=== PATIENT | male | born 1980 | race Caucasian/White ===

== ENCOUNTER 2025-09-17 17:01 | Emergency (ER) | payer OTHER, SELFPAY ==
--- NOTE | ~2025-09-17 | XR_ITS ---
XR hand RT min 3V 09/17/2025 21:20 Indication: Concern for right hand gas-forming organism Procedure: 5 views right hand Comparison: No prior studies for comparison. Findings: Moderate diffuse soft tissue swelling. There is possible subcutaneous gas. No evidence for osteomyelitis. Impression: 1: Possible subcutaneous gas with diffuse soft tissue swelling, suspicious for cellulitis. No evidence for osteomyelitis. Reviewed, dictated and finalized at location O. [employer] ENGINEER Impression: 1: Possible subcutaneous gas with diffuse soft tissue swelling, suspicious for cellulitis. No evidence for osteomyelitis.
--- NOTE | ~2025-09-17 | XR_ITS ---
EXAMINATION: XR chest 2V DATE: 09/17/2025 19:23 INDICATION: Crackles at lung bases. TECHNIQUE: Frontal and lateral views of the chest were obtained. COMPARISON: None. FINDINGS: Heart size is normal. Lungs are clear on both sides. Limited lateral view due to patient condition. IMPRESSION: 1. No acute cardiopulmonary findings Reviewed, dictated and finalized at location T. [employer]
--- NOTE | ~2025-09-17 | CT_ITS ---
EXAMINATION: CT hand RT wo con DATE: 09/18/2025 00:40 INDICATION: Right hand swelling with concern for gas forming organism TECHNIQUE: High resolution computed tomography (CT) of the right hand and wrist was performed without intravenous contrast. Additional sagittal and coronal reconstructions were performed. Automated exposure control and iterative reconstruction technique were employed. The dose-length product was 615.16 mGy-cm. COMPARISON: Right hand radiographs dated 09/17/2025 FINDINGS: Bone alignment is normal. No fracture. Joint spaces appear relatively preserved throughout. No cortical erosions or periosteal reaction to suggest osteomyelitis. There is diffuse soft tissue swelling with subcutaneous edema about the forearm and extending over the dorsum of the hand and wrist. No soft tissue gas. The lucencies of concern on the prior radiograph corresponds to the small lobules of subcutaneous fat surrounded by the more dense subcutaneous edema. No evident abscess or radiopaque foreign bodies. IMPRESSION: 1. Nonspecific soft tissue swelling and prominent subcutaneous edema about the distal forearm and extending over the dorsum of the hand and wrist. No abscess, soft tissue gas or osseous abnormality. Reviewed, dictated and finalized at location A. OPERATOR
[2025-09-17 17:06] VITALS: BP 153/95; PULSE 113; RESP 16; TEMP 37; O2SAT 97
[2025-09-17 18:24] VITALS: BP 145/100; PULSE 92; RESP 15; TEMP 36.7; O2SAT 98
[2025-09-17 18:49] VITALS: BP 147/90; PULSE 107; RESP 18; O2SAT 98
--- OUTSIDE RECORDS SUMMARY | 2025-09-17 18:49 | XMS_ITS | Clinical Summary ---
Author Organization [facility] Address [address] [place] [address] Care Team Providers Care Vascular Technician Name Role Phone Siomara Gordillo MD Primary Care Prov ider Allergies Active Allergy Reactions Criticality Noted Date Comments Vancomycin Rash Medium 03/10/2018 Hx red man syndrome Medications silver sulfadiazine (SILVADENE, SSD) 1 % cream Apply topically daily 50 g 1 1 Active acetaminophen (TYLENOL) 500 mg tablet Take 500 mg by mouth every 4 (four) hours as needed 0 Active famotidine (PEPCID) 20 mg tablet Take 20 mg by mouth nightly as needed 8 Active gabapentin (NEURONTIN) 300 mg capsule Take 600 mg by mouth nightly Active amoxicillin-clavu lanate (AUGMENTIN) 875-125 mg per tablet Take 1 tablet by mouth 2 (two) times a day Active furosemide (LASIX) 20 mg tabletIndications :Edema Take 30 mg by mouth as needed Active Active Problems Problem Noted Date Diagnosed Date Other biomechanical lesions of upper extremity 1 09/24/2020 Overview (07/25/2021): Added automatically from request for surgery [id number] Wound of left upper extremity 07/25/2021 Overview (07/25/2021): Added automatically from request for surgery [id number] Surgical History Surgery Date Site/Laterality Comments HAMSTRING RELEASE 09/21/1985 - 09/20/1986 Right r/t cerebral palsy Medical History Medical History Date Comments Bipolar disorder Hypertension h/o htn currentl y not on meds GERD (gastroesophageal reflux disease) takes pepcid prn Cerebral palsy rt side affected Sleep disorder can go 4-5 days w/o sleeping, possible RLS Social History Tobacco Use Types Packs/Day Years Used Date Smoking Tobacco: Every Day Cigarettes 0.3 30 AUDIT-C Answer Date Recorded Q1: How often do you have a drink containing alc ohol? Never 08/16/2021 Average Number of Drinks Not on file 021 Frequency of Binge Drinking Not on file 07/23 Personal Safety Answer Date Recorded Getting School Help Needed Not on file 11/16 Sex and Gender Information Value Date Recorded Sex Assigned at Not on file Legal Sex Male 6:50 AM APPLICATION SUPPORT Gender Identity Not on file Sexual Orientation Not on file Last Filed Vital Signs Vital Sign Reading Time Taken Comments Blood Pressure - - Pulse - - Temperature 36.6 C (97.8 F) 07/22/2021 10:22 AM CDT Respiratory Rate - - Oxygen Saturation - - Inhaled Oxygen Concentration - - Weight 84.4 kg (186 lb) 08/16/2021 11:55 AM APPLICATION SUPPORT Height 180.3 cm (5' 11) 08/16/2021 11:55 AM APPLICATION SUPPORT Body Mass Index 25.94 08/16/2021 11:55 AM APPLICATION SUPPORT Plan of Treatment Not on file Insurance [facility] Care Teams Vascular Technician Relationship Specialty Start Date End Date Siomara Gordillo MD PCP - General Family Medicine 06/21/21
--- OUTSIDE RECORDS SUMMARY | 2025-09-17 18:49 | XMS_ITS | Clinical Summary ---
Author Organization [facility] Address [address] [place] [address] Care Team Providers Care Metrology Engineer Name Role Phone Isaiah Moreland MD Primary Care Provider [phone] Source Comments [facility],non-owned Affiliates and Associated Physician Practices is amultiple site organization consisting of ambulatory clinics and hospital sitesin [place], [place], [place] and [place]. This disclosure is being madepursuant to the Care Everywhere program and may not contain all information available regarding this patient. Last updated 18.[facility] Allergies Active Allergy Reactions Criticality Noted Date Comments Vancomycin Rash Medium 03/10/2018 Hx red man syndrome Medications * Be aware that medications may not be up to date on this document. Alwaysverify current medications with the patient. sulfamethoxazole- trimethoprim (Bactrim DS; Septra DS) 800-160 MG tablet Take 2 (two) tablets by mouth 2 times daily for 5 days 20 tablet 2 Active sodium hypochlorite 0.125% (Dakins) 0.125 % SOLN 1/4 strength solution Apply to affected area every 8 hours 473 mL 3 Active buPROPion SR 12hr (Wellbutrin-SR) 150 MG tabletIndications :Nicotine Dependence Take 1 (one) tablet by mouth once daily for 30 days Reasons: Nicotine Addiction 30 tablet 4 Active traZODone (Desyrel) 50 MG tablet Take 1 (one) tablet by mouth at bedtime for 30 days 30 tablet 4 Active wound gel (Medihoney;Hydrog el) GEL Apply to affected area as needed 250 mL 4 Active sulfamethoxazole- trimethoprim (Bactrim DS; Septra DS) 800-160 MG tablet TAKE ONE TABLET BY MOUTH 2 TIMES A DAY 28 tablet 4 Active Active Problems Problem Noted Date Diagnosed Date Other acute osteomyelitis of left hand 3 Opiate use 09/11/2023 Microcytic anemia 09/11/2023 Elevated C-reactive protein (CRP) 09/11/2023 Elevated erythrocyte sedimentation rate 09/11/20 IVDU (intravenous drug user) 08/30/2022 Tobacco use 08/30/2022 Granulation tissue 08/30/2022 Swelling of left hand 08/30/2022 IV drug abuse 03/12/2018 Cerebral palsy 03/12/2018 Swelling of right hand 03/10/2018 Abscess of right hand Abscess of right thumb Resolved Problems Problem Noted Date Diagnosed Date Resolved Date Sepsis 09/11/2023 09/30/2023 Open wound of left hand with out foreign body, unspecified wound type, subsequent encounter 09/10/2023 09/30/2023 Cellulitis of hand 03/10/2018 4 Immunizations Immunization Administration Dates Next Due [employer] PTY primary monoval ent 12+ yr 0.3mL Purple cap 04/10/2021,03/13/2021 INFLUENZA VACCINE, QUADR. (A FLURIA, FLUZONE QUADRIVALENT; 6MO+) (IIV4) 06/20/2021 TDAP (7yrs+) 08/30/2022 Family History Medical History Relation Name Comments Diabetes - Type 2 Maternal Grandfather Hypertension Mother Diabetes - Type 2 Sister Hypertension Sister Relation Name Status Comments Maternal Grandfather Mother Sister Social History Tobacco Use Types Packs/Day Years Used Date Smoking Tobacco: Every Day Cigarettes 1 32 Smokeless Tobacco: Never Tobacco Cessation:Ready to Q uit: Not Asked; Counseling Given: Not Answered Alcohol Use Standard Drinks/Week Comments No 0 (1 standard drink = 0.6 oz pur e alcohol) AUDIT-C Answer Date Recorded Q1: How often do you have a drink containing alcohol? Never 09/17/2023 Q2: How many drinks containi ng alcohol do you have on a typical day when you are drinking? Patient does not drink Q3: How often do you have si x or more drinks on one occasion? Never 09/17/2023 Overall Financial Resource Strain (CARDIA) Answe r Date Recorded How hard is it for you to pa y for the very basics like food, housing, medical care, and heating? Patient declined 09/17/2023 PHQ-2 Answer Date Recorded Patient Health Questionnaire-2 Score 3 01/22/2024 [facility] - Occupational Stress Questionnaire Answer Date Recorded Do you feel stress - tense, restless, nervous, or anxious, or unable to sleep at night because your mind is troubled all the time - these days? Not at all 09/17/2023 Hunger Vital Sign Answer Date Recorded Within the past 12 months, y ou worried that your food would run out before you got the money to buy more. Never true 09/17/20 23 Within the past 12 months, t he food you bought just didn't last and you didn't have money to get more. Never true 09/17/2023 PRAPARE - Transportation Answer Date Re corded In the past 12 months, has l ack of transportation kept you from medical appointments or from getting medications? No 08/22 In the past 12 months, has l ack of transportation kept you from meetings, work, or from getting things needed for daily living? No 09/17/2023 Housing Stability Vital Sign Answer Lamberto e Recorded In the last 12 months, was t here a time when you were not able to pay the mortgage or rent on time? Yes 09/17/2023 In the last 12 months, how many places have you lived? 1 09/17/2023 In the last 12 months, was t here a time when you did not have a steady place to sleep or slept in a jail (including now)? No 09/17/2023 Sex and Gender Information Value Date Recorded Sex Assigned at Not on file Legal Sex Male 5:33 AM GUARD DRIVER Gender Identity Not on file Sexual Orientation Not on file Last Filed Vital Signs Vital Sign Reading Time Taken Comments Blood Pressure 131/68 09/30/2023 3:30 PM GUARD DRIVER Pulse 81 09/30/2023 3:30 PM GUARD DRIVER Temperature 36.7 C (98.1 F) 09/30/2023 3:30 PM GUARD DRIVER Respiratory Rate 18 09/30/2023 4:30 AM GUARD DRIVER Oxygen Saturation 96% 09/30/2023 3:30 PM GUARD DRIVER Inhaled Oxygen Concentration 21% 09/21/2023 4 :35 AM GUARD DRIVER Weight 81.6 kg (180 lb) 09/18/2023 1:29 PM GUARD DRIVER Height 180.3 cm (5' 11) 09/18/2023 1:29 PM GUARD DRIVER Body Mass Index 25.1 09/18/2023 1:29 PM GUARD DRIVER Plan of Treatment Health Maintenance Due Date Last Done Comments LIPID TESTING 1981 HEPATITIS B VACCINE (1 of 3 - 19+ 3-dose series) 02/11/2000 PNEUMOCOCCAL VACCINE (1 of 2 - PCV) 02/11/2000 HPV VACCINE (1 - 3-dose SCDM series) 02/11/2008 DEPRESSION SCREENING 09/21/2024 COVID-19 VACCINE ( - season) 2025 04/10/2021, 03/13/2021 INFLUENZA VACCINE (#1) 2025 06/20/2021 SCREENING FOR DIABETES 09/30/2026 , 09/28/2023, 09/26/2023, Additional history exists ZOSTER VACCINE (1 of 2) 2031 DTAP/TDAP/TD VACCINES (2 - Td or Tdap) 08/30/2032 08/30/2022 HEPATITIS C SCREENING Completed 09/01/2022 HIV SCREENING Completed 09/01/2022, 02/20, 03/16/2018, Additional history exists HIB VACCINE Aged Out No longer eligi ble based on patient's age to complete this topic MENINGOCOCCAL (Group B) VACCINE SHARED DECISION-MAKING Aged Out No longer eligible based on patient's age to complete this topic MENINGOCOCCAL GROUPS A/C/Y/W VACCINE Aged Out No longer eligible based on patient's age to complete this topic Procedures Procedure Name Priority Date/Time Associated Diagnosis Comments BASIC METABOLIC PANEL (CALCIUM TOTAL) Routine 09/30/2023 3:17 AM GUARD DRIVER HEPATITIS C AB SCREEN RFLX NAAT QUANT Routine 09/01/2022 3:17 AM GUARD DRIVER HIV-1 HIV-2 ANTIBODY + HIV P24 AG PANEL Routine 09/01/2022 3:17 AM GUARD DRIVER from Last 3 Months or Most Recently Relevant to Health Maintenance Results * (ABNORMAL) BASIC METABOLIC PANEL (CALCIUM TOTAL) (09/30/2023 3:17 AM GUARD DRIVER) BUN 12 7 - 26 mg/dL 09/30/2023 4:04 AM [facility] Creatinine 0.70(L) 0.71 - 1.16 mg/dL 09/30/2023 4:04 AM [facility] Sodium 138 136 - 145 mmol/L 09/30/2023 4:04 AM [facility] Potassium 4.0 3.5 - 4.5 mmol/L 09/30/2023 4:04 AM [facility] Chloride 106 98 - 107 mmol/L 09/30/2023 4:04 AM [facility] CO2 23 22 - 29 mmol/L 09/30/2023 4:04 AM [facility] Glucose 119(H) 70 - 115 mg/dL 09/30/2023 4:04 AM [facility] Calcium 9.2 8.4 - 10.2 mg/dL 09/30/2023 4:04 AM [facility] Anion Gap 9 6 - 16 09/30/2023 4:04 AM [facility] BUN/Creatinine Ratio 17 7 - 23 09/30/2023 4:04 AM [facility] Osmolality Calculated 287 275 - 295 mOsm/kg 09/30/2023 4:04 AM [facility] eGFR by CKD-EPI >90 >=90 mL/min/1.7 3 m2 09/30/2023 4:04 AM [facility] Blood BLOOD SPECIMEN / Unknown Lab Venipuncture / Unknown 09/30/2023 3:17 AM GUARD DRIVER 09/30/2023 3:33 AM [facility] us Estela Dacosta DO LAB - CHEMISTRY ORDERABLES Fin al Result [facility] [address] [place] [address], [facility] [phone] * HEPATITIS C AB SCREEN RFLX NAAT QUANT (09/01/2022 3:17 AM GUARD DRIVER) Hepatitis C Antibody Non-react osman Non-reac tive 09/01/2022 4:34 AM GUARD DRIVER [facility] Comment:Hepatitis C Antibody screen indicates no serologic evidence of past or current infection with Hepatitis C Virus. Patients with unexplained liver disease who are immunocompromised or suspected of having acute Hepatitis C infection may benefit from Nucleic Acid Test (DEANNE) for Hepatitis C Viral RNA to confirm Hepatitis C status. Blood BLOOD SPECIMEN / Unknown Line Draw / Unknown 09/01/2022 3:17 AM GUARD DRIVER 09/01/2022 4:00 AM GUARD DRIVER Surinder Elam MD LAB - CHEMISTRY ORDERABLES Fin al Result Performing Organization Address [facility]/ZIP Co de Phone Number [address] [address], [facility] [phone] * HIV-1 HIV-2 ANTIBODY + HIV P24 AG PANEL (09/01/2022 3:17 AM GUARD DRIVER) HIV Antigen/Antibod y 1 & 2 Non-reacti ve Non-react osman 09/01/2022 4:34 AM GUARD DRIVER [facility] Comment:No Laboratory eviden ce of HIV infection. Blood BLOOD SPECIMEN / Unknown Line Draw / Unknown 09/01/2022 3:17 AM GUARD DRIVER 09/01/2022 4:00 AM GUARD DRIVER Surinder Elam MD LAB - CHEMISTRY ORDERABLES Fin al Result Performing Organization Address [facility]/ZIP Co de Phone Number [facility] [address] [place] [phone], [place] [phone] from Last 3 Months or Most Recently Relevant to Health Maintenance Insurance [facility] Advance Directives * Full Code (Latest Code Status on File) Date Activated Date Inactivated Comments 09/15/2023 9:51 PM 09/30/2023 7:39 PM * Full Code Date Activated Date Inactivated Comments 09/10/2023 8:32 PM 09/13/2023 12:44 PM * Full Code Date Activated Date Inactivated Comments 08/30/2022 2:07 AM 09/01/2022 2:42 PM * Full Code Date Activated Date Inactivated Comments 03/10/2018 10:40 PM 03/20/2018 11:48 AM Care Teams Metrology Engineer Relationship Specialty Start Date End Date Isaiah Moreland MD [address] [place] [address] PCP - General 03/26/18
--- OUTSIDE RECORDS SUMMARY | 2025-09-17 18:49 | XMS_ITS | Data Portability ---
Author Organization [facility] Address [address] [place] [address] Assessment No assessment recorded. Plan of Treatment Reminders Order Date Submit Date Provider Last Modified By Organization Details Last Modified Time Details Appointments ANY 15 2025 10:15A M Siomara marti MD Not available Not available Not available Lab cultur e, wound 2020 022 [email or web address], [address] [place] [address], [facility] [address], [place], [address], 10/09/2021 17:26:49 CBC w/ auto diff 2020 021 ovinsmt [facility], [address] [place] [address], [facility] [address], [place], [address], 10/09/2021 17:26:49 CMP, serum or plasma [facility], [address] [place] [address], [facility] [address], [place], [address], 10/09/2021 17:26:49 Referral wound care referr al - 10 month hx ulcera tion L forear m 2020 021 [facility], [address] [place] [address] [place], [address], 07/25/2021 12:09:11 Procedures None record ed. Surgeries None record ed. Imaging XR, should er, 2 or more view 2023 024 [email or web address] Not available 02/28/2025 13:53:58 MRI, forear m, w/wo contra st - large ulcer L forear m x 10 months 12 x 8 centim eters -neopl asm? osteo? other? 2020 022 noa [facility] Patient Access Centralized Scheduling, Centralized Scheduling, [address] [facility] , [place], [address], 01/29/2022 17:38:13 Medication Orders gabape ntin 300 mg capsul e 2023 024 [facility] [id number] [facility], [address] [place] [address], [address], 11/19/2023 10:40:30 doxycy prado hyclat e 100 mg capsul e 2020 021 [email or web address] [id number], [address], 11/19/2023 12:16:37 Neuron tin 300 mg capsul e 2020 021 [facility] [address] In [facility], [address] [place] [address], [address], 06/20/2021 17:20:12 Robaxi n-750 750 mg tablet 2017 018 [email or web address] [address], [address], 11/19/2023 12:16:43 raniti dine 150 mg tablet 2017 018 [email or web address] [id number], [address], 11/19/2023 12:16:54 Patient TargetsNo targets recorded. Patient Instructions Encounter Date Encounter Id Patient Instructions Last Modified By Organization Details Last Modified Time 02/14/2021 [id number] Keep scheduled fu [email or web address] Not available 02/14/2021 17:29:31 05/02/2021 [id number] In person eval being scheduled [email or web address] Not available 05/02/2021 17:47:14 06/20/2021 [id number] Plan address other health care issues at fu appt. [email or web address] Not available 06/21/2021 11:00:29 11/19/2023 [id number] Quitting Tobacco: Care Instructions [email or web address] Not available 11/19/2023 10:40:27 Quitting Tobacco: Care Instructions [email or web address] Not available 11/19/2023 12:19:04 FU 6 weeks. Keep ortho appts. [email or web address] Not available 11/19/2023 12:19:03 Reason for Referral 10 month hx ulceration L for earm Referring Physician: Siomara Gordillo, Family Medicine, Encounter Date: 06/20/2021 Results Created Date Observation Date Name Description Value Unit Range Abnormal Flag Note LastModifiedBy Organization Detail LastModifiedTime 03/10/20 18 03/10/2018 XR, hand No observ ation record ed. [email or web address] [facility] (Imaging) [address] [place], [address], 03/15/2018 09:47:14 Result Notes None recorded. Problems Name Problem SNOMED Code Status Onset Date Resolution Date Notes Provider Name and Address Organization Details Recorded Time Low back pain 583122434 Kai Moreland MD Attn: Chanell duvall,[address] [facility], [place], [address], [place] - [facility] 5 15:25:01 Gastroes ophageal reflux disease 047073691 Active Isaiah Moreland MD Attn: Chanell duvall,[address] [facility], [place], [address], [place] [facility] 5 15:25:01 Restless legs syndrome 03390754 Kai Moreland MD Attn: Chanell duvall,[address] [facility], [place], [address], [place] [facility] 5 15:25:01 Hepatiti s C antibody detected 027828336 Active needs confirma tory testing Siomara marti MD Attn: Chanell duvall,[address] [facility], [place], [address], [place] - [facility] 1 10:21:08 Cerebral palsy 162248828 Active Isaiah Moreland MD Attn: Chanell duvall,[address] [facility], [place], [address], [place] - [facility] 5 15:25:02 Cellulit is of upper limb 589794682 Completed 201603/25/2018 Isaiah Moreland MD Attn: Chanell duvall,[address] [facility], [place], [place], [address] [place] [address] 2, [place] - [facility] 8 15:21:46 Cellulit is 130170665 Completed 201603/25/2018 left distal forearm Isaiah Moreland MD Attn: Chanell duvall,[address] [facility], [place], [place], [address] [place] [address] 2, [place] - [facility] 8 15:22:24 Cellulit is of right hand 12809529014 980900 Active 2017 Isaiah Moreland MD Attn: Chanell duvall,[address] [facility], [place], [place], [address] [place] [address] 2, [facility] - [facility] 8 15:22:15 Neuropat hy 675919697 Active 2020 B LE per pt, gabapent in helps Siomara marti MD Attn: Chanell duvall,[address] [facility], [place], [address], [place] - [facility] 1 10:20:53 Problem Notes None recorded. Procedures Surgical History Date Name Laterality Status Provider Name and Address Organization Details Recorded Time Other completed Chester farrell [place] - [facility] 05/15/2015 14:41:36 Imaging Results None recorded. Procedure Notes None recorded. Medical Equipment None Reported. Allergies Allergen ID Allergen Name Allergen Category Reaction Reaction Severity Criticality Documentation Date Start Date Code Code System Note Provider Name and Address Organization Details Recorded Time 352397 vancomyci n medicatio n rash severe Not available 03/25/2018 56408 RxNorm Isaiah Moreland MD Attn: Chanell duvall,[address] [facility], [place], [address], [facility] 8 15:18:22 11054 Nikolay rogersbethelo n Not available Not available Not available 05/15/2015 8 RxNorm Chester Foy rASHLEY null, [place] - [facility] 5 14:41:36 Medications Name Sig Start Date Stop Date Status Note LastModified by Organization Details LastModified Time silver sulfadiazin e 1 % topical cream completed Not Available Not Available Not Available bupropion HCl SR 150 mg tablet,12 hr sustained-r elease TAKE 1 TABLET BY MOUTH ONCE DAILY FOR 30 DAYS FOR NICOTINE ADDICTION active Not Available Not Available No t Available doxycycline hyclate 100 mg capsule Take 1 capsule twice a day by oral route. 2020 completed Not Available Not Available Not Available clindamycin HCl 300 mg capsule completed Not Available Not Available Not Available trazodone 50 mg tablet TAKE 1 TABLET BY MOUTH AT BEDTIME active Not Available Not Available No t Available nicotine (polacrilex ) 2 mg gum CHEW 1 PIECE OF GUM EVERY 2 HOURS NEEDED FOR SMOKING CESSATION completed Not Available Not Available Not Available hydrocodone 5 mg-acetamin ophen 325 mg tablet 03/25 completed Not Available Not Available Not Available clindamycin HCl 150 mg capsule TAKE 3 CAPSULES BY MOUTH THREE TIMES DAILY FOR 5 DAYS completed Not Available Not Available Not Available metronidazo le 500 mg tablet TAKE 1 TABLET BY MOUTH EVERY 8 HOURS FOR 7 DAYS completed Not Available Not Available Not Available ciprofloxac in 500 mg tablet completed Not Available Not Available Not Available sulfamethox azole 800 mg-trimetho prim 160 mg tablet Take 1 tablet every 12 hours by oral route for 14 days. completed Not Available Not Available Not Available tramadol 50 mg tablet 03/25 completed Not Available Not Available Not Available acetaminoph en 500 mg tablet TAKE 1 TABLET BY MOUTH EVERY 4 HOURS NEEDED FOR FEVER completed Not Available Not Available Not Available methocarbam ol 750 mg tablet TAKE 1 TABLET BY MOUTH EVERY DAY AT BEDTIME completed Not Available Not Available Not Available ropinirole 0.25 mg tablet Take 1 tablet every day by oral route at bedtime. 01/15 completed Not Available Not Available Not Available doxycycline monohydrate 100 mg capsule TAKE 1 CAPSULE BY MOUTH EVERY 12 HOURS FOR 7 DAYS completed Not Available Not Available Not Available hydrocodone 7.5 mg-acetamin ophen 325 mg tablet 03/25 completed Not Available Not Available Not Available ropinirole 0.5 mg tablet 01/15 completed Not Available Not Available Not Available ranitidine 150 mg tablet Take 1 tablet twice a day by oral route. completed Not Available Not Available Not Available gabapentin 300 mg capsule TAKE 1 CAPSULE BY MOUTH THREE TIMES A DAY FOR 7 DAYS THEN INCREASE TO 2 CAPS 3 TIMES A DAY active Not Available Not Available No t Available gentamicin 0.1 % topical cream completed Not Available Not Available Not Available furosemide 20 mg tablet completed Not Available Not Available Not Available cefdinir 300 mg capsule TAKE 1 CAPSULE BY MOUTH EVERY 12 HOURS FOR 7 DAYS completed Not Available Not Available Not Available naproxen 500 mg tablet completed Not Available Not Available Not Available amoxicillin 500 mg-potassiu m clavulanate 125 mg tablet 03/25 completed Not Available Not Available Not Available Dakin's Solution 0.125 % APPLY TOPICALLY TO THE AFFECTED AREA EVERY 8 HOURS completed Not Available Not Available Not Available Suboxone 8 mg-2 mg sublingual film 03/25 completed Not Available Not Available Not Available Vitals Date Recorded Body height Body mass index (BMI) Body weight Heart rate Body temperature Systolic And Diastolic Provider Name and Address Organization Details Last Updated DateTime 4 180.34 cm 29 kg/m2 33074.2 1 g 93 /min 98.2 [degF] 134/87 mm[Hg] Karma Agrawal [place] - [facility] 4 10:28:12 Date Recorded Body height Body mass index (BMI) Body weight Body temperature Oxygen saturation Heart rate Systolic And Diastolic Provider Name and Address Organization Details Last Updated DateTime 8 182.88 cm 24.8 kg/m2 26177.4 g 98.4 [degF] 96 % 114 /min 110/70 mm[Hg] Mily Troncoso MA [facility] 8 14:24:42 Date Recorded Body height Body mass index (BMI) Body weight Oxygen saturation Pain severity - 0-10 verbal numeric rating [Score] - Reported Body temperature Respiratory rate Heart rate Systolic And Diastolic Provider Name and Address Organization Details Last Updated DateTime 1 180.34 cm 26.5 kg/m2 92380.5 5 g 98 % 10 98.9 [degF] 20 /min 80 /min 112/68 mm[Hg] Duane Antonio MA [facility] 1 17:03:25 Social History Question Answer Notes LastModified by Organizat ion Details LastModified Time Tobacco Smoking Status Current Every Day Smoker Mily Troncoso MA [facility] 08/05/2017 15:32:15 What Is Your Level Of Caffeine Consumption? Occasional Information not available 11/19/2023 What Was The Date Of Your Most Recent Tobacco Screening? 11/19/2023 Information not available 11/19/2023 How Much Tobacco Do You Smoke? 0.25 PPD Information not available 11/19/2023 Has Tobacco Cessation Counseling Been Provided? Yes Information not available 11/19/2023 On What Date Was Tobacco Cessation Counseling Provided? 11/19/2023 Information not available 11/19/2023 How Many Years Have You Smoked Tobacco? 19 [email or web address] Information not available 08/05/2017 Sex: Unknown Functional Status Question Answer Note LastModified by Organizat ion Details LastModified Time Do you use any illicit or recreational drugs? No Information not available 11/19/2023 What is your level of alcohol consumption? None Information not available 11/19/2023 Mental Status None recorded. Family History Relationship Description Onset Age of this Age Resolved Age Notes LastModified by Organization Details LastModified Time Sister Diabetes mellitus [email or web address] Not available 04/22 14:41:36 Medical History Condition Response Hepatitis Y Immunizations Vaccine Type Date Status Note Provider Nam e and Address Organization Details Recorded Time Influenza, split virus, quadrivalent, preservative completed Duane Antonio MA [facility], [place] - [facility] 06/20/2021 17:42:44 Past Encounters Encounter ID Performer Location Encounter Start Date Encounter Closed Date Diagnosis/Indication Diagnosis SNOMED-CT Code Diagnosis ICD10 Code Diagnosis IMO Codes Diagnosis Note [id number] [facility] [address] [place] [address] 05/15/2015 13:49:19 05/15/2015 18:04:29 Low back pain 266011370 Gastroesop hageal reflux disease 525014292 Restless l egs syndrome 45391809 Hepatitis C antibody detected 383528880 Cerebral palsy 611421694 [id number] MD Maggy Zee (Adult Med) [address] [place] [address] 01/15/2017 15:01:13 01/15/2017 18:03:55 Cellulitis of upper limb 177597663 L03.119 Gastroesop hageal reflux disease 410990040 K21.9 Cerebral palsy 832548605 G80.9 Low back pain 623133622 M54.5 Restless l egs syndrome 15264425 G25.81 [id number] [facility] [address] [place] [phone] 07/15/2017 16:42:04 07/15/2017 17:26:57 [id number] MD Maggy Zee (Adult Med) [address] [place] [phone] 08/05/2017 15:04:10 08/06/2017 10:23:53 Cerebral palsy 412378733 G80.9 Cellulitis 008479833 L03 .90 Continue current home care. [id number] MD Maggy Zee (Adult Med) [address] [place] [phone] 03/25/2018 14:00:30 03/25/2018 15:26:56 Low back pain 551534678 M54.5 Gastroesop hageal reflux disease 057861207 K21.9 Cellulitis of right hand 5492557473 5439824 L03.113 Contacted [facility]. Awaiting response from [facility] substituti on for linezolid. [id number] Siomara farrell MD [facility] (Adult Med) [address] [place] [address] 02/14/2021 16:57:37 02/19/2021 19:43:15 Swelling of upper limb 925966734 R22.30 Chronic, recurrent cellulitis (?). I advised needs to return to ER. Keep fu appt IN PERSON. [id number] Siomara farrell MD [facility] (Adult Med) [address] [place] [address] 05/02/2021 15:40:38 05/08/2021 18:53:19 Skin lesion 29235234 L98.9 My staff is contacting Mr. Troncoso to schedule in person evaluation . I advised needs to be seen as not typical for skin infection to persist for months and needs in person eval. [id number] Siomara farrell MD [facility] (Adult Med) [address] [place] [address] 06/20/2021 16:11:16 06/21/2021 17:13:24 Neuropathy 842141305 G62.9 Chronic (many years). LE b and worst sx at night. Better with BID neurontin. Refilled and plan neuropathy albrecht at fu. Administra tion of influenza vaccine 84783597 Z23 Chronic ulcer of skin 19 890192 L98.499 Reportedly present since the beginning of the year. Ulcer with ongoing trauma causing enlarge/fa il to heal? neoplasm (SCC?, other)?, spider bite with ulceration ? Refer to wound care kayode and evaluation of etiology of lesion. [id number] Siomara farrell MD [facility] (Adult Med) [address] [place] [address] 11/19/2023 10:10:49 11/20/2023 09:40:59 Pain in left arm 233192452 M79.602 pain at stump - radicular, phantom? Trial gabapentin Smoker 54048686 F17.200 Attempting to quit. Encouraged resume buproprion and plan 12 weeks therapy to help decrease urge to smoke. Pain of le ft shoulder joint 6155067394 7823957 M25.512 Indicated pain in anterior shoulder but no impact [facility] Concerns Section Related Observation LastModified by Organization Detai ls LastModified Time None Recorded Concern Status LastModified by Organization Details LastModified Time None Recorded Advance Directives Directive None Recorded Payers Insurance Date Sequence Insurance Name Policy Number Policy Mendez Covered Member ID Mendez Member ID Guarantor Name 08/15/[address] [facility] ON OR AFTER 03/21/21 (MEDICAID REPLACEMENT - HMO) Fili Troncoso [id number] Fili Troncoso 08/15/[address] [facility] PRIOR TO 03/21/2021 (MEDICAID REPLACEMENT - HMO) Fili Troncoso [id number] Fili Troncoso Notes Date Note Type Note Provider Name and Address Organization Details Recorded Time 03/25/2018 text/html Was hospitalized at [facility] for cellulitis right hand. Discharged on three antibiotics including Linezolid 600 mg BID for 14 days. Rx apparently not covered by insurance. Isaiah Moreland MD Attn: Accounting,[address] [place], [address], [facility] 03/25/2018 15:26:28 02/14/2021 text/html Two years intermittent swelling and pain in right hand. Incresed swelling and pain recently prompted ER visit. Got a bag of antibiotics and dc home with oral. Since then skin falling off at the wrist and swelling worse. Denies fever, + hx ivdu per past er eval for same, ope sores on arms. Siomara Gordillo MD Attn: Accounting[address] [place], [address], [facility] 02/14/2021 17:29:45 05/02/2021 text/html Hx of lesion on L arm near wrist for 9 months. Reports it is open but healing. Last examined 12/2020 when he was seen in ER. Mr. Troncoso had phone visit 01/2021 with me complaining of two year hx swelling and pain in the R hand. He was instructed to fu in office in person but wasn't able. He states the right hand is fine and his concern is as stated above. Hx IVDU in past. Reportedly not current. He denies fever, chills and feels well. Siomara Gordillo MD Attn: Accounting,[address], [place], [address], [facility] - [facility] 05/02/2021 17:47:31 06/20/2021 text/html Last in person office visit 03/[address] Moreland 41 yo very poor historian with hx for staph infection in arm. He presents today with a large area of dry ulceration on L posterior forearm. He reports present since early this year - started a a small dot. He was reportedly evaluated at [facility] ER early in 2020 and again 12/2020. . He received IV antibiotics and had an MRI at some point to make sure no infection in bone but denies biopsy or specialty evaluation or any long-term plan to address the lesion. 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 Now in care of ortho and wearing compression sleeve in anticipation of prothesis. Complain of pain in the arm from stump to shoulder, no neck pain. Aching keeps him up at night. Tobacco use - trying to quit; took buproprion for 8 days then stopped when hadn't quit smoking altogether Siomara Gordillo MD Attn: Accounting,[address], [place], [address], [facility] - [facility] 11/19/2023 12:19:19
--- NOTE | 2025-09-17 19:11 | ECG_ITS ---
Test Date: 2025-09-17 21:56:22 Measurements Intervals [place] Rate: 88 P: 50 VT: 146 QRS: 41 QRSD: 99 T: 26 QT: 356 QTc: 432 Interpretive Statements SINUS RHYTHM EARLY PRECORDIAL R/S TRANSITION BORDERLINE ECG No previous ECG available for comparison Electronically Signed On 09-18-2025 08:21:25 SENIOR ANALYST by Lloyd Silvestre D.O.
--- NOTE | 2025-09-17 19:13 | ED.EXTPRO ---
HPI - Extremity Problem General Chief complaint: Extremity Problem,Nontraumatic Stated complaint: right hand swelling, ketan leg swelling Time Seen by Provider: 09/17/25 18:24 History of Present Illness HPI Narrative: Patient is a 45-year-old male who presents to the ER with bilateral lower extremity edema and right hand edema. He reports he 1st noticed lower extremity edema couple of days ago, but his hand started swelling last night. 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 He denies any recent fevers, chest pain, shortness of breath. Patient denies any history of diabetes or congestive heart failure. He he reports his only other medical history is IV drug use in the past and gastric reflux. Related Data Allergies Allergy/AdvReac Type Severity Reaction Status Date / Time vancomycin Allergy Severe Rash Verified 09/17/25 18:24 Review of Systems Review of Systems: All systems reviewed & are unremarkable except as noted in HPI and below Exam Narrative: GENERAL: Well appearing, well-nourished, non-toxic, in no acute distress. HEAD: Normocephalic, atraumatic. NECK: Supple. No adenopathy, no masses. RESPIRATORY: Airway patent, respirations nonlabored. Clear to auscultation bilaterally, no rales, rhonchi, wheezing. CARDIOVASCULAR: Regular rate and rhythm without murmurs, rubs, or gallops. Peripheral pulses 2+ and equal bilaterally. Significant bilateral lower extremity pitting edema. ABDOMINAL: Soft, nontender, nondistended, no hepatosplenomegaly. Normoactive BS. MUSCULOSKELETAL: Moves all extremities. Strength/ROM intact without gross deformities. No decreased range of motion from swelling. SKIN: Warm, dry, normal color. No rashes. Redness and significant edema to right hand. Bilateral calf lower extremity redness and edema. NEURO: A&O X3. Speech clear. Cranial nerves II-XII intact. No ataxic movements. PSYCHIATRIC: Appropriate mood and affect. Normal interaction. Course Vital Signs Vital signs: Vital Signs Temperature 37.0 C 09/17/25 17:06 Pulse Rate 113 H 09/17/25 17:06 Respiratory Rate 16 09/17/25 17:06 Blood Pressure 153/95 H 09/17/25 17:06 Pulse Oximetry 97 09/17/25 17:06 Oxygen Delivery Room Air 09/17/25 17:06 Temperature 36.5 C 09/18/25 00:24 Pulse Rate 85 09/18/25 00:24 Respiratory Rate 16 09/18/25 00:24 Blood Pressure 131/83 09/18/25 00:24 Pulse Oximetry 97 09/18/25 00:24 Oxygen Delivery Room Air 09/17/25 18:24 [facility] Narrative Medical decision making narrative: Patient is a 45-year-old male who presents to the ER with bilateral lower extremity edema and right hand edema. He reports he 1st noticed lower extremity edema couple of days ago, but his hand started swelling last night. 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 He denies any recent fevers, chest pain, shortness of breath. Patient denies any history of diabetes or congestive heart failure. He he reports his only other medical history is gastric reflux. Labs Ordered: CBC, CMP, proBNP, coags, UA, UDS, CRP, lactic acid, PTT, INR Imaging Ordered: Chest x-ray, right hand x-ray Medications Ordered: 1 L normal saline IV bolus, Ancef 1 g IV Results: Patient's chest x-ray indicates no acute cardiopulmonary abnormalities. Patient right hand x-ray indicates nonspecific soft tissue swelling of the hand and distal forearm with gas in the soft tissues of the distal forearm. Question gas-forming organism. No fracture or dislocation. Patient's CT scan indicates marked soft tissue swelling of the distal forearm and hand. There is no gas noted, the finding of the prior radiograph this felt to be artifactual. No fracture or dislocation. No periosteal reaction or erosion to suggest osteomyelitis. Diagnosis: Cellulitis Patient Education/Shared MDM: An IV was unable be obtained, so patient was unable to receive IV antibiotics here in the ER. Luckily, his CT scan did not show any gas, so pt will be started on oral antibiotics instead. Results of lab work and imaging shared with patient. He endorses improvement of symptoms following pain medication administration. Patient strongly advised to maintain hydration status upon discharge and follow-up with his PCP as soon as possible for wound re-evaluation. He will be discharged home with a prescription for Bactrim. Strict return precautions provided. Patient verbalized understanding and is in agreement with plan. Vital signs stable at time of discharge. All questions answered. Differential Diagnosis Differential Diagnosis: Osteomyelitis, cellulitis, congestive heart failure, sepsis Lab Data [facility] Lab Attestation statement: I personally reviewed the patient's lab results. 09/17/25 20:52 09/17/25 20:52 Labs: Lab Results 09/17/25 Range/Units 20:52 WBC 6.9 (4.5-10.0) K/mm3 RBC 5.07 (4.6-6.20) M/mm3 Hgb 14.0 (14.0-18.0) g/dL Hct 44.4 (42.0-52.0) % MCV 87.6 (80-100) fl MCH 27.6 (26-34) pg MCHC 31.5 L (32-36) g/dl RDW 13.7 (11.5-14.5) % Plt Count 209 (150-375) k/mm3 MPV 9.5 (7.4-10.4) fl Immature Gran % (Auto) 0.3 (0-0.5) % Neut % (Auto) 58.1 (45.5-73.1) % Lymph % (Auto) 25.9 (18.3-44.2) % [place] % (Auto) 10.2 H (2.6-8.5) % Eos % (Auto) 5.1 H (0-4.4) % Baso % (Auto) 0.4 (0.2-1.2) % Lymph # (Auto) 1.78 (0.9-3.2) K/mm3 [place] # (Auto) 0.7 H (0.1-0.6) K/mm3 Eos # (Auto) 0.4 H (0-0.3) K/mm3 Baso # (Auto) 0.0 (0.0-0.1) K/mm3 Abs Immat Gran (auto) 0.02 (0.00-0.031) K/mm3 Absolute Neuts (auto) 4.0 (1.3-6.7) K/mm3 Absolute Nucleated RBC 0.000 (0.0-0.012) K/mm3 Nucleated RBC % 0.0 (0.0-0.2) % PT 14.5 (11.1-14.7) Seconds INR 1.1 APTT 31.3 (22.3-36.8) Seconds Sodium 136 L (137-145) mmol/L Potassium 4.3 (3.4-5.0) mmol/L Chloride 107 (98-107) mmol/L Carbon Dioxide 24 (22-30) mmol/L Anion Gap 5 (4-12) mmol/L BUN 13 (9-20) mg/dL Creatinine 0.88 (0.7-1.3) mg/dL Estim Creat Clear Calc 121 ml/min Estimated GFR > 60 (59 - ) Glucose 86 (65-110) mg/dL Lactic Acid 0.7 (0.7-2.0) mmol/L Calcium 9.0 (8.4-10.2) mg/dL Total Bilirubin 0.8 (0.2-1.3) mg/dL AST 81 H (17-59) U/L ALT 69 H (6-50) U/L Alkaline Phosphatase 60 (38-126) U/L C-Reactive Protein 2.5 H (<1.0) mg/dL NT-Pro-B Natriuret Pep 369 H (19.9-100) pg/mL Total Protein 7.2 (6.3-8.2) g/dL Albumin 3.9 (3.5-5.1) g/dL Imaging Data Attestation: I personally reviewed and interpreted this imaging study as follows: My impression: Patient's CT scan indicates marked soft tissue swelling of the distal forearm and hand. There is no gas noted, the finding of the prior radiograph this felt to be artifactual. No fracture or dislocation. No periosteal reaction or erosion to suggest osteomyelitis. Radiologist's impression: ITS Impressions Chest X-Ray 09/17/25 19:24 IMPRESSION: 1. No acute cardiopulmonary findings Discharge Plan Discharge Clinical Impression: Cellulitis, Lower extremity edema Patient Disposition: Home Condition: Serious Instructions: Antibiotic Form, Cellulitis (ED), Leg Edema (ED) Additional Instructions: Please return to the ER with any worsening symptoms, including fevers, increased swelling, yellow drainage coming from the site, or decreased ability to move your hand. Follow-up with primary care provider as soon as possible for wound re-evaluation. Take all medications as prescribed, including regularly scheduled medications. Please complete your full dose of antibiotics. Patient Language: Swedish Prescriptions: New sulfamethoxazole-trimethoprim [Bactrim DS] 800-160 mg tablet 1 tablet PO Q12H 10 Days Qty: 20 0RF Follow-up/Referrals: PHYSICIAN NOT ON STAFF,NONSTAFF [Primary Care Provider] Time of Disposition: 01:32
--- NOTE | 2025-09-17 19:18 | PC.NURSE ---
Received report from MIKALA Nixon for cont. of care. Pt AOx3 lying on stretcher being taken to XRAY by tech.
[2025-09-17 19:22] VITALS: BP 151/96; PULSE 87; RESP 12; TEMP 36.9; O2SAT 97
[2025-09-17 21:04] LABS: Hematocrit 44.4 % (42.0-52.0); Hemoglobin 14.0 g/dL (14.0-18.0); Immature Granulocyte Percent A 0.3 % (0-0.5); Lymphocytes Absolute Auto 1.78 K/mm3 (0.9-3.2); Mean Corpuscular HGB Conc 31.5 g/dl (32-36); Mean Corpuscular Hemoglobin 27.6 pg (26-34); Mean Corpuscular Volume 87.6 fl (80-100); Nucleated Red Blood Cells Absolute Auto 0.000 K/mm3 (0.0-0.012); Nucleated Red Blood Cells Perc 0.0 % (0.0-0.2); Platelet Count Result 209 k/mm3 (150-375); Red Blood Count 5.07 M/mm3 (4.6-6.20); White Blood Count 6.9 K/mm3 (4.5-10.0)
[2025-09-17 21:21] LABS: INR 1.1; Prothrombin Time 14.5 Seconds (11.1-14.7)
[2025-09-17 21:22] LABS: Partial Thromboplastin Time 31.3 Seconds (22.3-36.8)
--- NOTE | 2025-09-17 21:24 | PC.NURSE ---
MAGO Moya made aware, unable to gain IV access.
[2025-09-17 22:16] LABS: NT Pro B Type Natriuretic Pept 369 pg/mL (19.9-100)
[2025-09-17 22:45] LABS: Alanine Aminotransferase 69 U/L (6-50); Albumin Level 3.9 g/dL (3.5-5.1); Alkaline Phosphatase 60 U/L (38-126); Anion Gap 5 mmol/L (4-12); Aspartate Amino Transferase 81 U/L (17-59); Bilirubin,Total 0.8 mg/dL (0.2-1.3); Blood Urea Nitrogen 13 mg/dL (9-20); CRP 2.5 mg/dL (<1.0); Calcium 9.0 mg/dL (8.4-10.2); Carbon Dioxide 24 mmol/L (22-30); Chloride 107 mmol/L (98-107); Estimated CRCL calculation 121 ml/min; Estimated Glomerular Filt Rate > 60; Glucose 86 mg/dL (65-110); Potassium 4.3 mmol/L (3.4-5.0); Sodium 136 mmol/L (137-145); Total Protein 7.2 g/dL (6.3-8.2)
[2025-09-18 00:24] VITALS: BP 131/83; PULSE 85; RESP 16; TEMP 36.5; O2SAT 97
[2025-09-18] MEDS: HYDROcodone/acetaminophen (*CRX) 5-325 MG TABLET 1 TAB PO (00:24)
--- NOTE | 2025-09-18 00:39 | PC.NURSE ---
Pt made aware need urine sample, pt verbalized understanding and refusing straight cath.
[2025-09-18] MEDS: SULFAMETHOXAZOLE/TRIMETHOPRIM 800/160 MG DS TABLET 2 TAB PO (01:41)
[2025-09-18 01:49] VITALS: BP 137/96; PULSE 96; RESP 16; O2SAT 97
== END 2025-09-18 01:51 | disposition home or self-care (01) ==
PROVIDERS: Emergency Provider Registered Nurse
DX: L03.113 Cellulitis of right upper limb (principal); R60.0 Localized edema; Z89.202 Acquired absence of left upper limb, unspecified level
CPT/HCPCS: 36415; 71046; 73130; 73200; 80053; 83605; 83880; 85025; 85610; 85730; 86140; 87040; 93005; 99284; A9270